=== PATIENT | male | born 1965 | race Caucasian/White ===

== ENCOUNTER 2016-06-06 02:04 | Inpatient (IN) | payer OTHER ==
[~2016-06-06] VITALS: Ht 167.6 cm; Wt 68.9 kg
[~2016-06-06 02:04] MED LIST: ACCUPRIL10 MG PO; ACCUPRIL20 MG PO; ACCUPRIL5 MG PO; ALLEGRA180 MG PO; ASPERDRINK81 MG PO; ASPIR-LOW81 M1 PO; ASPIRIN E.C.81 M1 PO; ASPIRIN E.C.81 M2 PO; BUDEPRION SR150 MG PO; CELEXA40 MG PO; CIALIS10 MG PO; CIPROFLOXACIN500 M1 PO; CRESTOR10 MG PO; DETROL LA4 MG PO; DITROPAN5 MG PO; ELAVIL10 MG PO; FLONASE IH; GEODON40 MG PO; HUMALOG100 UNIT/1 SC; INSULIN PUMP SCCONT; JET ALERT; Klonopin PO; LEVITRA10 MG PO; LIPITOR40 MG PO; Lipitor PO; METOPROLOL SUCC25 MG PO; METOPROLOL SUCC50 MG PO; NEURONTIN300 MG PO; NORCO 5/3251 TABLET PO; OXYBUTYNIN CHLOR5 MG PO; POTASSIUM CHLO10 ME3 PO; PROTONIX40 MG PO; QUINAPRIL HCL5 MG PO; REGLAN10 MG PO; VALTREX1000 MG PO; WELLBUTRIN SR150 MG PO; WELLBUTRIN XL150 MG PO; WELLBUTRIN XL300 MG PO; XANAX; ZOFRAN4 MG PO; [UNRECOGNIZED DRUG - OTHER]
[2016-06-06 02:31] LABS: POINT-OF-CARE METER ID UU13113778
[2016-06-06 02:36] LABS: HEMATOCRIT 44.2 % (38.0-50.0); MCH 31.3 PG (29.0-34.0); MCHC 35.1 G/DL (30.0-36.0); MCV 89.1 FL (86-99); RBC DIS.WIDTH-CV 11.8 % (11.8-14.6); RED BLOOD COUNT 4.96 M/uL (4.00-5.50); WHITE BLOOD COUNT 10.7 K/uL (4.1-10.2)
[2016-06-06 02:50] LABS: CHLORIDE 96 mEq/L (99-109); POTASSIUM 3.8 mEq/L (3.7-5.4); SODIUM 138 mEq/L (136-147)
[2016-06-06 02:51] LABS: GLUCOSE 311 mg/dL (70-99)
[2016-06-06 02:53] LABS: ANION GAP 16 MEQ/L (2-14)
[2016-06-06 02:55] LABS: GFR ESTIMATE (CALCULATED) > 59 mL/min/
[2016-06-06 02:56] LABS: UREA NITROGEN (BUN) 14 mg/dL (9-23)
[2016-06-06 02:57] LABS: TROP-I INTERPRETATION NEGATIVE; TROPONIN-I 0.01 ng/mL (0.0-0.30)
[2016-06-06 02:58] LABS: CREATINE KINASE 98 IU/L (1-294)
[2016-06-06] MEDS ORDERED: ELAVIL10 MG PO (03:09)
[2016-06-06] MEDS ORDERED: XANAX0.25 MG PO (03:09)
[2016-06-06] MEDS ORDERED: VICODIN 5-3001 EACH PO (03:10)
[2016-06-06 03:11] LABS: MEAN PLAT.VOLUME 12.8 uM^3 (9.0-12.4); PLAT.SUFFICIENCY ADEQUATE; PLATELET COUNT 252 K/uL (156-360)
[2016-06-06 03:24] LABS: CARBON DIOXIDE (BICARBONATE) 29.9 MEQ/L (20-31)
[2016-06-06 03:38] LABS: D-DIMER ELISA 0.44 mg/L FEU (< 0.57)
[2016-06-06 07:22] VITALS: BP 162/89
[2016-06-06] MEDS ORDERED: METOPROLOL TART50 MG PO (09:09)
[2016-06-06] MEDS ORDERED: ELAVIL50 MG PO (09:11)
[2016-06-06] MEDS ORDERED: OXYBUTYNIN CHLOR5 M1 PO (09:15)
[2016-06-06] MEDS ORDERED: DAILY VALUE1 EACH PO (09:17)
[2016-06-06 10:08] LABS: TROP-I INTERPRETATION NEGATIVE; TROPONIN-I 0.05 ng/mL (0.0-0.30)
[2016-06-06 16:39] LABS: TROP-I INTERPRETATION NEGATIVE; TROPONIN-I 0.04 ng/mL (0.0-0.30)
[2016-06-06 20:05] VITALS: BP 123/71
[2016-06-06 20:51] LABS: POINT-OF-CARE METER ID UU14174216
[2016-06-07] VITALS (7 sets, daily range): BP systolic 109–148; BP diastolic 52–83
[2016-06-07 01:05] LABS: TROP-I INTERPRETATION NEGATIVE; TROPONIN-I 0.02 ng/mL (0.0-0.30)
[2016-06-07 07:08] LABS: ALKALINE PHOSPHATASE 36 IU/L (3-129); ANION GAP 6 MEQ/L (2-14); CHLORIDE 106 MEQ/L (99-109); GFR ESTIMATE (CALCULATED) > 59 mL/min/; POTASSIUM 4.5 MEQ/L (3.7-5.4); SAMPLE HEMOLYSIS CHECK 0; SAMPLE ICTERIC CHECK 0; SAMPLE LIPEMIA CHECK 0; SODIUM 140 MEQ/L (136-147); TOTAL BILIRUBIN 0.4 MG/DL (0.0-1.0); UREA NITROGEN (BUN) 10 mg/dL (9-23)
[2016-06-07 07:09] LABS: GLUCOSE 112 mg/dL (70-99)
[2016-06-07 11:15] LABS: POINT-OF-CARE METER ID UU13113781
[2016-06-07 15:51] LABS: POINT-OF-CARE METER ID UU13113781
[2016-06-07 21:27] LABS: POINT-OF-CARE METER ID UU14174216; POINT-OF-CARE USER ID ENVMNS
[2016-06-08 04:00] VITALS: BP 137/76
[2016-06-08 07:45] LABS: POINT-OF-CARE METER ID UU13113781; POINT-OF-CARE USER ID ENVKC36
[2016-06-08 08:24] VITALS: BP 163/87
[2016-06-08 11:47] VITALS: BP 159/84
[2016-06-08 12:06] LABS: POINT-OF-CARE METER ID UU13113781; POINT-OF-CARE USER ID ENVKC36
[2016-06-08] MEDS ORDERED: METOCLOPRAMIDE10 MG PO (12:49)
[2016-06-08] MEDS ORDERED: PANTOPRAZOLE SO40 MG PO (12:49)
== END 2016-06-08 15:39 | disposition home or self-care (01) | DRG 392 ==
LOC: EME 02:04 → EDOF 04:40 → 4EAST 07:22
PROVIDERS: Emergency Medicine; Internal Medicine
DX: K21.9 Gastro-esophageal reflux disease without esophagitis (principal); K30 Functional dyspepsia; R07.89 Other chest pain; K31.84 Gastroparesis; E10.649 Type 1 diabetes mellitus with hypoglycemia without coma; F32.9 Major depressive disorder, single episode, unspecified; G89.29 Other chronic pain; I50.9 Heart failure, unspecified; R00.0 Tachycardia, unspecified; E10.43 Type 1 diabetes mellitus with diabetic autonomic (poly)neuropathy; D72.829 Elevated white blood cell count, unspecified; E83.52 Hypercalcemia; E10.65 Type 1 diabetes mellitus with hyperglycemia; R11.2 Nausea with vomiting, unspecified; E78.5 Hyperlipidemia, unspecified; I11.0 Hypertensive heart disease with heart failure; E10.40 Type 1 diabetes mellitus with diabetic neuropathy, unspecified; I25.10 Atherosclerotic heart disease of native coronary artery without angina pectoris; Z87.891 Personal history of nicotine dependence; Z91.013 Allergy to seafood; Z91.09 Other allergy status, other than to drugs and biological substances; Z95.1 Presence of aortocoronary bypass graft; Z86.718 Personal history of other venous thrombosis and embolism; I25.2 Old myocardial infarction; Z96.41 Presence of insulin pump (external) (internal)
CPT/HCPCS: 71020; 80048; 80053; 82010; 82550; 82803; 82948; 84100; 84443; 84484; 85027; 85379; 93005; 99281; 99285; J1650; J1815; J2270; J2405; J3489; J7030; J7050; S0028

== ENCOUNTER 2016-11-29 18:51 | Emergency (ER) | payer OTHER ==
[~2016-11-29] VITALS: Ht 167.6 cm; Wt 68.2 kg
[~2016-11-29 18:51] MED LIST changes: +DAILY VALUE1 EACH PO; +ELAVIL50 MG PO; +METOCLOPRAMIDE10 MG PO; +METOPROLOL TART50 MG PO; +OXYBUTYNIN CHLOR5 M1 PO; +PANTOPRAZOLE SO40 MG PO; +VICODIN 5-3001 EACH PO; +XANAX0.25 MG PO
[2016-11-29 19:10] LABS: POINT-OF-CARE METER ID UU13113778
[2016-11-29 20:01] LABS: MCH 31.1 PG (29.0-34.0); MCHC 34.5 G/DL (30.0-36.0); MCV 90.2 FL (86-99); MEAN PLAT.VOLUME 12.4 uM^3 (9.0-12.4); PLATELET COUNT 306 K/uL (156-360); RBC DIS.WIDTH-CV 11.9 % (11.8-14.6); RBC DIS.WIDTH-SD 39.5 % (39-53); RED BLOOD COUNT 4.88 M/uL (4.00-5.50); WHITE BLOOD COUNT 16.5 K/uL (4.1-10.2)
[2016-11-29 20:10] LABS: ADD MIUA? YES; BILIRUBIN NEGATIVE; BLOOD NEGATIVE; COLOR STRAW ((YELLOW)); GLUCOSE (STRIP) >=500; KETONES NEGATIVE; LEUKOCYTES SMALL; NITRITE NEGATIVE; PROTEIN (STRIP) NEGATIVE; SPECIFIC GRAVITY 1.006 (1.000-1.030); UROBILINOGEN 0.2 MG/DL (0.2-1.0)
[2016-11-29 20:11] LABS: CHLORIDE 97 mEq/L (99-109); SODIUM 134 mEq/L (136-147)
[2016-11-29 20:13] LABS: GLUCOSE 218 mg/dL (70-99)
[2016-11-29 20:14] LABS: ANION GAP 15 MEQ/L (2-14)
[2016-11-29 20:17] LABS: GFR ESTIMATE (CALCULATED) > 59 mL/min/
[2016-11-29 20:18] LABS: UREA NITROGEN (BUN) 13 mg/dL (9-23)
[2016-11-29 20:20] LABS: TROP-I INTERPRETATION NEGATIVE; TROPONIN-I < 0.01 ng/mL (0.0-0.30)
[2016-11-29 20:30] LABS: BACTERIA RARE /HPF; CASTS NONE SEEN /LPF; CRYSTALS NONE SEEN; EPITHELIAL CELLS RARE /HPF; MUCUS RARE /LPF; RED BLOOD CELLS RARE /HPF (0-5)
[2016-11-29 21:58] VITALS: BP 141/85
[2016-11-29 22:10] LABS: SERUM ETHYL ALCOHOL < 10 mg/dL
[2016-11-29 22:14] LABS: COCAINE NEGATIVE (150 ng/mL); PHENCYCLIDINE NEGATIVE (25 ng/mL); THC CANNABINOIDS PRESUMPTIVE POSITIVE (50 ng/mL)
[2016-11-29 22:15] LABS: ADD MEDTOX COMMENT Y; AMPHETAMINE NEGATIVE (500 ng/mL); BARBITURATES NEGATIVE (200 ng/mL); BENZODIAZEPINES NEGATIVE (150 ng/mL); INTERNAL CONTROLS VALID? YES; MEDTOX DRUG SCREEN COMMENT Y; METHADONE NEGATIVE (200 ng/mL); METHAMPHETAMINE NEGATIVE (500 ng/mL); OPIATES (MORPHINE) NEGATIVE (100 ng/mL); OXYCODONE NEGATIVE (100 ng/mL); PROPOXYPHENE NEGATIVE (300 ng/mL); TRICYCLIC ANTIDEPRESSANTS PRESUMPTIVE POSITIVE (300 ng/mL)
== END 2016-11-29 21:59 | disposition left against medical advice (07) ==
LOC: EME 18:51
PROVIDERS: Physician Assistant
PROC: 0HQ1XZZ Repair Face Skin, External Approach (ICD-10-PCS; principal; 2016-11-29)
DX: S40.812A Abrasion of left upper arm, initial encounter (principal); S01.112A Laceration without foreign body of left eyelid and periocular area, initial encounter; S60.512A Abrasion of left hand, initial encounter; S80.211A Abrasion, right knee, initial encounter; S80.212A Abrasion, left knee, initial encounter; W19.XXXA Unspecified fall, initial encounter; R55 Syncope and collapse; R42 Dizziness and giddiness; E11.9 Type 2 diabetes mellitus without complications; Z79.4 Long term (current) use of insulin; Z96.41 Presence of insulin pump (external) (internal); Z79.82 Long term (current) use of aspirin; Z87.891 Personal history of nicotine dependence; Z53.20 Procedure and treatment not carried out because of patient's decision for unspecified reasons
CPT/HCPCS: 71010; 80048; 81003; 82948; 84484; 84999; 85027; 93005; 99281; 99283; G0480

== ENCOUNTER 2017-01-29 12:18 | Emergency (ER) | payer OTHER ==
[~2017-01-29] VITALS: Ht 167.6 cm; Wt 73.4 kg
[~2017-01-29 12:18] MED LIST changes: +METOPROLOL TART25 MG PO; -METOPROLOL TART50 MG PO
[2017-01-29 15:25] LABS: HEMATOCRIT 47.4 % (38.0-50.0); MCH 30.6 PG (29.0-34.0); MCV 89.9 FL (86-99); RBC DIS.WIDTH-SD 39.6 % (39-53); RED BLOOD COUNT 5.27 M/uL (4.00-5.50); WHITE BLOOD COUNT 15.5 K/uL (4.1-10.2)
[2017-01-29 15:38] LABS: CHLORIDE 94 mEq/L (99-109); POTASSIUM 5.9 mEq/L (3.7-5.4); SODIUM 129 mEq/L (136-147)
[2017-01-29 15:41] LABS: ANION GAP 13 MEQ/L (2-14)
[2017-01-29 15:43] LABS: ALKALINE PHOSPHATASE 69 IU/L (3-129)
[2017-01-29 15:44] LABS: GFR ESTIMATE (CALCULATED) > 59 mL/min/ (58.99-99999)
[2017-01-29 15:45] LABS: TROP-I INTERPRETATION NEGATIVE; TROPONIN-I < 0.01 ng/mL (0.0-0.30); UREA NITROGEN (BUN) 17 mg/dL (9-23)
[2017-01-29 15:49] LABS: GLUCOSE 447 mg/dL (70-99)
[2017-01-29 15:54] LABS: TOTAL BILIRUBIN 0.7 mg/dL (0.0-1.0)
[2017-01-29 16:16] LABS: MEAN PLAT.VOLUME 12.6 uM^3 (9.0-12.4); PLAT.SUFFICIENCY ADEQUATE; PLATELET COUNT 258 K/uL (156-360)
[2017-01-29 18:00] LABS: ADD MIUA? NO; BILIRUBIN NEGATIVE; BLOOD NEGATIVE; COLOR STRAW ((YELLOW)); GLUCOSE (STRIP) >=500; KETONES 20; LEUKOCYTES NEGATIVE; NITRITE NEGATIVE; PROTEIN (STRIP) NEGATIVE; SPECIFIC GRAVITY 1.014 (1.000-1.030); UCUL ADDED? NO; UROBILINOGEN 0.2 MG/DL (0.2-1.0)
[2017-01-29 18:02] LABS: POINT-OF-CARE METER ID UU13113800
[2017-01-29 18:12] LABS: AMPHETAMINE NEGATIVE (500 ng/mL); BARBITURATES NEGATIVE (200 ng/mL); BENZODIAZEPINES NEGATIVE (150 ng/mL); COCAINE NEGATIVE (150 ng/mL); INTERNAL CONTROLS VALID? YES; METHADONE NEGATIVE (200 ng/mL); METHAMPHETAMINE NEGATIVE (500 ng/mL); OPIATES (MORPHINE) NEGATIVE (100 ng/mL); OXYCODONE NEGATIVE (100 ng/mL); PHENCYCLIDINE NEGATIVE (25 ng/mL); PROPOXYPHENE NEGATIVE (300 ng/mL); THC CANNABINOIDS PRESUMPTIVE POSITIVE (50 ng/mL); TRICYCLIC ANTIDEPRESSANTS PRESUMPTIVE POSITIVE (300 ng/mL)
[2017-01-29 18:13] LABS: ADD MEDTOX COMMENT Y
[2017-01-29 18:54] LABS: TROP-I INTERPRETATION NEGATIVE; TROPONIN-I < 0.01 ng/mL (0.0-0.30)
[2017-01-29] MEDS ORDERED: ULTRAM50 MG PO (19:17)
[2017-01-29 20:01] LABS: POINT-OF-CARE METER ID UU13113800
[2017-01-29 20:14] VITALS: BP 107/48
[2017-02-02 10:38] LABS: POINT-OF-CARE METER ID UU13113800
== END 2017-01-29 20:22 | disposition home or self-care (01) ==
LOC: EME 12:18
PROVIDERS: Nurse Practitioner Family
DX: R55 Syncope and collapse (principal); R07.81 Pleurodynia; E11.65 Type 2 diabetes mellitus with hyperglycemia; E11.40 Type 2 diabetes mellitus with diabetic neuropathy, unspecified; K31.84 Gastroparesis; I11.0 Hypertensive heart disease with heart failure; I50.9 Heart failure, unspecified; K21.9 Gastro-esophageal reflux disease without esophagitis; J45.909 Unspecified asthma, uncomplicated; I25.2 Old myocardial infarction; F41.9 Anxiety disorder, unspecified; F32.9 Major depressive disorder, single episode, unspecified; F31.9 Bipolar disorder, unspecified; Z95.1 Presence of aortocoronary bypass graft; Z87.891 Personal history of nicotine dependence; Z96.41 Presence of insulin pump (external) (internal); Z79.82 Long term (current) use of aspirin; Z91.041 Radiographic dye allergy status
CPT/HCPCS: 70450; 71101; 80053; 81003; 82948; 84484; 84999; 85027; 93005; 99281; 99285; J1815; J1885; J2405; J7030

== ENCOUNTER 2017-02-05 13:36 | Inpatient (IN) | payer OTHER ==
[~2017-02-05] VITALS: Ht 167.6 cm; Wt 72.7 kg
[~2017-02-05 13:36] MED LIST changes: +ULTRAM50 MG PO
[2017-02-05 14:26] LABS: HEMATOCRIT 49.7 % (38.0-50.0); MCH 31.1 PG (29.0-34.0); MCHC 34.2 G/DL (30.0-36.0); MCV 90.9 FL (86-99); RBC DIS.WIDTH-SD 39.8 % (39-53); RED BLOOD COUNT 5.47 M/uL (4.00-5.50); WHITE BLOOD COUNT 17.2 K/uL (4.1-10.2)
[2017-02-05 14:43] LABS: CHLORIDE 95 mEq/L (99-109); POTASSIUM 4.7 mEq/L (3.7-5.4); SODIUM 134 mEq/L (136-147)
[2017-02-05 14:48] LABS: GLUCOSE 223 mg/dL (70-99)
[2017-02-05 14:49] LABS: GFR ESTIMATE (CALCULATED) 52 mL/min/ (58.99-99999); UREA NITROGEN (BUN) 14 mg/dL (9-23)
[2017-02-05 14:52] LABS: CREATININE 1.5 mg/dL (0.6-1.3); TROP-I INTERPRETATION NEGATIVE; TROPONIN-I < 0.01 ng/mL (0.0-0.30)
[2017-02-05 15:35] LABS: PLATELET CLUMPS PRESENT - PLATELET COUNT APPEARS ADQ.
[2017-02-05 15:36] LABS: PLATELET COUNT UNABLE TO REPORT K/uL (156-360)
[2017-02-05] MEDS ORDERED: METOCLOPRAMIDE10 MG PO (19:27)
[2017-02-05] MEDS ORDERED: PROTONIX40 MG PO (19:27)
[2017-02-06 03:34] VITALS: BP 185/57
[2017-02-06 06:53] LABS: ALBUMIN 3.7 G/DL (3.2-4.8); ALKALINE PHOSPHATASE 60 IU/L (3-129); ALT (GPT) 15 IU/L (3-49); AST (GOT) 20 IU/L (2-34); CHLORIDE 91 MEQ/L (99-109); CREATININE 1.1 MG/DL (0.6-1.3); GFR ESTIMATE (CALCULATED) > 59 mL/min/ (58.99-99999); GLUCOSE 304 mg/dL (70-99); POTASSIUM 4.5 MEQ/L (3.7-5.4); SODIUM 130 MEQ/L (136-147); TOTAL PROTEIN 5.7 G/DL (6.4-8.3)
[2017-02-06 07:00] LABS: TOTAL BILIRUBIN 0.8 MG/DL (0.0-1.0); UREA NITROGEN (BUN) 26 mg/dL (9-23)
[2017-02-06 07:18] LABS: HEMATOCRIT 40.4 % (38.0-50.0); MCH 30.4 PG (29.0-34.0); MCHC 33.4 G/DL (30.0-36.0); PLATELET COUNT 221 K/uL (156-360); RBC DIS.WIDTH-CV 12.1 % (11.8-14.6); RBC DIS.WIDTH-SD 40.2 % (39-53); RED BLOOD COUNT 4.44 M/uL (4.00-5.50); WHITE BLOOD COUNT 18.9 K/uL (4.1-10.2)
[2017-02-06 07:36] LABS: HEMOGLOBIN 13.5 G/DL (12.5-16.6)
[2017-02-06 07:51] VITALS: BP 172/81
[2017-02-06 10:17] LABS: AMYLASE 30 IU/L (1-118)
[2017-02-06 18:25] VITALS: BP 158/82
[2017-02-06 19:19] VITALS: BP 160/83
[2017-02-07 03:48] VITALS: BP 134/62
[2017-02-07 06:31] LABS: HEMATOCRIT 32.3 % (38.0-50.0); MCH 29.8 PG (29.0-34.0); MCHC 33.4 G/DL (30.0-36.0); MCV 89.2 FL (86-99); PLATELET COUNT 187 K/uL (156-360); RBC DIS.WIDTH-CV 12.5 % (11.8-14.6); RBC DIS.WIDTH-SD 40.9 % (39-53); RED BLOOD COUNT 3.62 M/uL (4.00-5.50); WHITE BLOOD COUNT 14.1 K/uL (4.1-10.2)
[2017-02-07 06:38] LABS: HEMOGLOBIN 10.8 G/DL (12.5-16.6)
[2017-02-07 06:41] LABS: ALBUMIN 2.9 G/DL (3.2-4.8); ALKALINE PHOSPHATASE 60 IU/L (3-129); ALT (GPT) 11 IU/L (3-49); AST (GOT) 16 IU/L (2-34); CHLORIDE 100 MEQ/L (99-109); CREATININE 0.7 MG/DL (0.6-1.3); GFR ESTIMATE (CALCULATED) > 59 mL/min/ (58.99-99999); GLUCOSE 202 mg/dL (70-99); POTASSIUM 4.3 MEQ/L (3.7-5.4); SODIUM 132 MEQ/L (136-147); UREA NITROGEN (BUN) 12 mg/dL (9-23)
[2017-02-07 06:42] LABS: TOTAL BILIRUBIN 0.6 MG/DL (0.0-1.0); TOTAL PROTEIN 4.7 G/DL (6.4-8.3)
[2017-02-07 07:35] VITALS: BP 143/70
[2017-02-07 11:12] VITALS: BP 139/70
[2017-02-07 16:24] VITALS: BP 134/79
[2017-02-07 20:57] VITALS: BP 152/72
[2017-02-07 23:00] VITALS: BP 161/78
[2017-02-08 01:27] LABS: C DIFF TOXIN NEGATIVE (NEGATIVE)
[2017-02-08 06:16] VITALS: BP 150/68
[2017-02-08 07:43] VITALS: BP 158/80
[2017-02-08 17:02] VITALS: BP 144/80
[2017-02-08 23:34] VITALS: BP 158/89
[2017-02-09 05:49] LABS: BASOPHIL (%) 0.4 % (0-1); BASOPHIL COUNT 0.1 K/uL (0-0.1); EOSINOPHIL (%) 0.4 % (0-5); EOSINOPHIL COUNT 0.1 K/uL (0-0.3); HEMATOCRIT 34.8 % (38.0-50.0); HEMOGLOBIN 11.6 G/DL (12.5-16.6); IMMATURE GRANULOCYTE (%) 0.9 % (0.0-0.7); LYMPHOCYTE (%) 6.3 % (15-42); LYMPHOCYTE COUNT 0.9 K/uL (1.0-2.8); MCH 29.5 PG (29.0-34.0); MCHC 33.3 G/DL (30.0-36.0); MCV 88.5 FL (86-99); MONOCYTE (%) 9.5 % (3-12); MONOCYTE COUNT 1.3 K/uL (0-0.8); NEUTROPHIL (%) 82.5 % (45-76); NEUTROPHIL COUNT 11.5 K/uL (1.8-6.4); PLATELET COUNT 180 K/uL (156-360); RBC DIS.WIDTH-CV 12.1 % (11.8-14.6); RBC DIS.WIDTH-SD 39.7 % (39-53); RED BLOOD COUNT 3.93 M/uL (4.00-5.50); WHITE BLOOD COUNT 13.9 K/uL (4.1-10.2)
[2017-02-09 06:30] LABS: IRON 27 MCG/DL (35-150); TRANSFERRIN (TIBC) 187.8 mg/dL (215-380); TRANSFERRIN SATUR. 14 % (20-55)
[2017-02-09 07:47] VITALS: BP 179/98
[2017-02-09 08:40] LABS: FERRITIN 130 NG/ML (22-322)
[2017-02-09 10:54] VITALS: BP 170/94
[2017-02-09 12:48] VITALS: BP 152/74
[2017-02-09 15:59] VITALS: BP 163/78
[2017-02-10 01:00] VITALS: BP 186/101
[2017-02-10 06:43] LABS: BASOPHIL (%) 0.5 % (0-1); BASOPHIL COUNT 0.1 K/uL (0-0.1); EOSINOPHIL (%) 0.7 % (0-5); EOSINOPHIL COUNT 0.1 K/uL (0-0.3); HEMATOCRIT 35.3 % (38.0-50.0); HEMOGLOBIN 12.2 G/DL (12.5-16.6); IMMATURE GRANULOCYTE (%) 1.5 % (0.0-0.7); LYMPHOCYTE (%) 6.6 % (15-42); LYMPHOCYTE COUNT 0.9 K/uL (1.0-2.8); MCH 30.5 PG (29.0-34.0); MCHC 34.6 G/DL (30.0-36.0); MCV 88.3 FL (86-99); MONOCYTE (%) 10.6 % (3-12); MONOCYTE COUNT 1.4 K/uL (0-0.8); NEUTROPHIL (%) 80.1 % (45-76); NEUTROPHIL COUNT 10.8 K/uL (1.8-6.4); PLATELET COUNT 202 K/uL (156-360); RBC DIS.WIDTH-CV 12.1 % (11.8-14.6); RBC DIS.WIDTH-SD 39.2 % (39-53); WHITE BLOOD COUNT 13.4 K/uL (4.1-10.2)
[2017-02-10 06:55] VITALS: BP 155/77
[2017-02-10 07:12] LABS: CHLORIDE 97 MEQ/L (99-109); CREATININE 0.6 MG/DL (0.6-1.3); GFR ESTIMATE (CALCULATED) > 59 mL/min/ (58.99-99999); GLUCOSE 239 mg/dL (70-99); POTASSIUM 3.5 MEQ/L (3.7-5.4); SODIUM 133 MEQ/L (136-147); UREA NITROGEN (BUN) 3 mg/dL (9-23)
[2017-02-10 11:36] VITALS: BP 152/85
[2017-02-10 23:18] VITALS: BP 120/60
[2017-02-11 04:24] VITALS: BP 144/67
[2017-02-11 06:59] LABS: CHLORIDE 102 MEQ/L (99-109); CREATININE 0.7 MG/DL (0.6-1.3); GFR ESTIMATE (CALCULATED) > 59 mL/min/ (58.99-99999); GLUCOSE 253 mg/dL (70-99); SODIUM 133 MEQ/L (136-147); UREA NITROGEN (BUN) 2 mg/dL (9-23)
[2017-02-11 07:00] LABS: POTASSIUM 4.3 MEQ/L (3.7-5.4)
[2017-02-11 08:13] VITALS: BP 144/67; BP 144/68
[2017-02-11 12:00] VITALS: BP 142/78
[2017-02-11 16:00] VITALS: BP 136/63
[2017-02-11 20:00] VITALS: BP 150/85
[2017-02-12] VITALS: BP 138/78
[2017-02-12 04:20] VITALS: BP 155/85
[2017-02-12 07:49] VITALS: BP 133/60
[2017-02-12] MEDS ORDERED: METRONIDAZOLE500 MG PO (09:47)
[2017-02-12] MEDS ORDERED: LEVOFLOXACIN750 MG PO (09:47)
[2017-02-12] MEDS ORDERED: DELZICOL400 M1 PO (09:47)
[2017-02-12 12:00] VITALS: BP 132/62
[2017-02-12] MEDS ORDERED: APRISO0.375 GM PO ×2 (12:46→12:48)
== END 2017-02-12 13:20 | disposition home or self-care (01) | DRG 385 ==
LOC: EME 13:36 → 5EAST 19:50 → EDOF 19:50 → ENRESERV 20:15 → 5EAST 21:37 → ENPENDDIS 02-12 → 5EAST 02-12 13:20
PROVIDERS: Emergency Medicine; Internal Medicine; Nurse Practitioner Family; Specialist
PROC: 0DBB8ZX Excision of Ileum, Via Natural or Artificial Opening Endoscopic, Diagnostic (ICD-10-PCS; principal; 2017-02-10)
PROC: 0DB68ZX Excision of Stomach, Via Natural or Artificial Opening Endoscopic, Diagnostic (ICD-10-PCS; principal; 2017-02-10)
PROC: 0DBG8ZX Excision of Left Large Intestine, Via Natural or Artificial Opening Endoscopic, Diagnostic (ICD-10-PCS; principal; 2017-02-10)
PROC: 0DBF8ZX Excision of Right Large Intestine, Via Natural or Artificial Opening Endoscopic, Diagnostic (ICD-10-PCS; principal; 2017-02-10)
PROC: 0DBP8ZX Excision of Rectum, Via Natural or Artificial Opening Endoscopic, Diagnostic (ICD-10-PCS; principal; 2017-02-10)
DX: K51.50 Left sided colitis without complications (principal); K55.039 Acute (reversible) ischemia of large intestine, extent unspecified; K58.0 Irritable bowel syndrome with diarrhea; F33.9 Major depressive disorder, recurrent, unspecified; K22.10 Ulcer of esophagus without bleeding; K21.0 Gastro-esophageal reflux disease with esophagitis; E10.40 Type 1 diabetes mellitus with diabetic neuropathy, unspecified; E10.65 Type 1 diabetes mellitus with hyperglycemia; M19.90 Unspecified osteoarthritis, unspecified site; E10.43 Type 1 diabetes mellitus with diabetic autonomic (poly)neuropathy; K31.84 Gastroparesis; K64.8 Other hemorrhoids; K44.9 Diaphragmatic hernia without obstruction or gangrene; I25.10 Atherosclerotic heart disease of native coronary artery without angina pectoris; F12.10 Cannabis abuse, uncomplicated; I95.9 Hypotension, unspecified; F41.9 Anxiety disorder, unspecified; E78.5 Hyperlipidemia, unspecified; E10.21 Type 1 diabetes mellitus with diabetic nephropathy; G43.909 Migraine, unspecified, not intractable, without status migrainosus; I11.9 Hypertensive heart disease without heart failure; K29.60 Other gastritis without bleeding; K25.9 Gastric ulcer, unspecified as acute or chronic, without hemorrhage or perforation; Z91.041 Radiographic dye allergy status; Z91.013 Allergy to seafood; Z95.1 Presence of aortocoronary bypass graft; Z90.49 Acquired absence of other specified parts of digestive tract; Z86.718 Personal history of other venous thrombosis and embolism; Z86.010 Personal history of colon polyps; Z83.71 Family history of colonic polyps; Z98.61 Coronary angioplasty status; Z79.4 Long term (current) use of insulin; I25.2 Old myocardial infarction; Z87.891 Personal history of nicotine dependence; Z96.41 Presence of insulin pump (external) (internal); Z83.3 Family history of diabetes mellitus; Z80.0 Family history of malignant neoplasm of digestive organs; Z82.49 Family history of ischemic heart disease and other diseases of the circulatory system
CPT/HCPCS: 36415; 71020; 74176; 80048; 80053; 82150; 82728; 82947; 82948; 83540; 84153 GA; 84466; 84484; 84681 90; 85025; 85027; 87177; 87329; 87493; 87506; 88305; 88312; 88342 TC; 93005; 93880; 95819; 99281; 99285; C9113; J1630; J1650; J1815; J1956; J2060; J2270; J2405; J3480; J7030; S0030

== ENCOUNTER 2017-05-25 23:04 | Emergency (ER) | payer OTHER ==
[~2017-05-25] VITALS: Ht 167.6 cm; Wt 72.9 kg
[~2017-05-25 23:04] MED LIST changes: +APRISO0.375 GM PO; +DELZICOL400 M1 PO; +LEVOFLOXACIN750 MG PO; +METRONIDAZOLE500 MG PO
[2017-05-25 23:56] LABS: HEMATOCRIT 37.8 % (38.0-50.0); HEMOGLOBIN 12.6 G/DL (12.5-16.6); MCH 28.3 PG (29.0-34.0); MCHC 33.3 G/DL (30.0-36.0); MCV 84.8 FL (86-99); RBC DIS.WIDTH-SD 43.7 % (39-53); RED BLOOD COUNT 4.46 M/uL (4.00-5.50); WHITE BLOOD COUNT 13.1 K/uL (4.1-10.2)
[2017-05-26 00:05] LABS: CHLORIDE 98 mEq/L (99-109); POTASSIUM 4.1 mEq/L (3.7-5.4); SODIUM 132 mEq/L (136-147)
[2017-05-26 00:07] LABS: GLUCOSE 385 mg/dL (70-99)
[2017-05-26 00:11] LABS: GFR ESTIMATE (CALCULATED) > 59 mL/min/ (58.99-99999)
[2017-05-26 00:12] LABS: UREA NITROGEN (BUN) 7 mg/dL (9-23)
[2017-05-26 00:56] LABS: PLAT.SUFFICIENCY ADEQUATE; PLATELET COUNT 215 K/uL (156-360)
[2017-05-26 02:12] VITALS: BP 126/79
== END 2017-05-26 02:12 | disposition home or self-care (01) ==
LOC: EME → EDBD 23:04 → EME 05-26 02:12
PROVIDERS: Emergency Medicine
DX: E11.649 Type 2 diabetes mellitus with hypoglycemia without coma (principal); Z96.41 Presence of insulin pump (external) (internal); E11.40 Type 2 diabetes mellitus with diabetic neuropathy, unspecified; K31.84 Gastroparesis; I10 Essential (primary) hypertension; I25.2 Old myocardial infarction; F31.9 Bipolar disorder, unspecified; F32.9 Major depressive disorder, single episode, unspecified; F41.9 Anxiety disorder, unspecified; Z87.891 Personal history of nicotine dependence; Z95.1 Presence of aortocoronary bypass graft; Z79.4 Long term (current) use of insulin; Z79.82 Long term (current) use of aspirin; Z91.041 Radiographic dye allergy status
CPT/HCPCS: 80048; 81003; 82948; 85027; 99281; 99285

== ENCOUNTER 2017-06-13 15:04 | Emergency (ER) | payer OTHER ==
[~2017-06-13] VITALS: Ht 167.6 cm; Wt 76.0 kg
[2017-06-13 15:26] LABS: HEMATOCRIT 42.5 % (38.0-50.0); HEMOGLOBIN 13.7 G/DL (12.5-16.6); MCH 28.1 PG (29.0-34.0); MCHC 32.2 G/DL (30.0-36.0); MCV 87.3 FL (86-99); PLATELET COUNT 240 K/uL (156-360); RBC DIS.WIDTH-CV 14.4 % (11.8-14.6); RBC DIS.WIDTH-SD 46.1 % (39-53); RED BLOOD COUNT 4.87 M/uL (4.00-5.50); WHITE BLOOD COUNT 9.4 K/uL (4.1-10.2)
[2017-06-13 15:33] LABS: CHLORIDE 101 mEq/L (99-109); POTASSIUM 4.2 mEq/L (3.7-5.4); SODIUM 139 mEq/L (136-147)
[2017-06-13 15:39] LABS: GFR ESTIMATE (CALCULATED) > 59 mL/min/ (58.99-99999)
[2017-06-13 15:40] LABS: UREA NITROGEN (BUN) 9 mg/dL (9-23)
[2017-06-13 15:43] LABS: GLUCOSE 43 mg/dL (70-99)
[2017-06-13 16:10] LABS: TROP-I INTERPRETATION NEGATIVE; TROPONIN-I < 0.01 ng/mL (0.0-0.30)
[2017-06-13 17:15] VITALS: BP 186/103
== END 2017-06-13 17:27 | disposition home or self-care (01) ==
LOC: EME 15:04
PROVIDERS: Family Medicine
DX: E11.649 Type 2 diabetes mellitus with hypoglycemia without coma (principal); E11.40 Type 2 diabetes mellitus with diabetic neuropathy, unspecified; Z96.41 Presence of insulin pump (external) (internal); Z79.4 Long term (current) use of insulin; I25.2 Old myocardial infarction; I50.9 Heart failure, unspecified; I11.0 Hypertensive heart disease with heart failure; F41.9 Anxiety disorder, unspecified; F32.9 Major depressive disorder, single episode, unspecified; R56.9 Unspecified convulsions; Z95.1 Presence of aortocoronary bypass graft; Z79.82 Long term (current) use of aspirin; Z87.891 Personal history of nicotine dependence; Z88.8 Allergy status to other drugs, medicaments and biological substances; Z91.041 Radiographic dye allergy status
CPT/HCPCS: 80048; 82948; 84484; 85027; 93005; 99281; 99284

== ENCOUNTER 2017-10-05 17:54 | Emergency (ER) | payer OTHER ==
[~2017-10-05] VITALS: Ht 167.6 cm; Wt 68.0 kg
[2017-10-05 18:39] LABS: BASOPHIL (%) 0.3 % (0-1); BASOPHIL COUNT 0.1 K/uL (0-0.1); EOSINOPHIL (%) 0.6 % (0-5); EOSINOPHIL COUNT 0.1 K/uL (0-0.3); HEMATOCRIT 46.3 % (38.0-50.0); HEMOGLOBIN 15.3 G/DL (12.5-16.6); IMMATURE GRANULOCYTE (%) 0.7 % (0.0-0.7); LYMPHOCYTE (%) 5.8 % (15-42); LYMPHOCYTE COUNT 1.1 K/uL (1.0-2.8); MCH 29.5 PG (29.0-34.0); MCV 89.2 FL (86-99); MONOCYTE (%) 5.1 % (3-12); MONOCYTE COUNT 0.9 K/uL (0-0.8); NEUTROPHIL (%) 87.5 % (45-76); NEUTROPHIL COUNT 16.1 K/uL (1.8-6.4); PLATELET COUNT 249 K/uL (156-360); RBC DIS.WIDTH-SD 45.5 % (39-53); RED BLOOD COUNT 5.19 M/uL (4.00-5.50); WHITE BLOOD COUNT 18.3 K/uL (4.1-10.2)
[2017-10-05 18:49] LABS: CHLORIDE 98 mEq/L (99-109); POTASSIUM 4.4 mEq/L (3.7-5.4); SODIUM 136 mEq/L (136-147)
[2017-10-05 18:50] LABS: GLUCOSE 210 mg/dL (70-99)
[2017-10-05 18:54] LABS: CREATININE 1.4 mg/dL (0.6-1.3); GFR ESTIMATE (CALCULATED) 56 mL/min/ (58.99-99999)
[2017-10-05 18:55] LABS: UREA NITROGEN (BUN) 12 mg/dL (9-23)
[2017-10-05 19:01] LABS: TROP-I INTERPRETATION NEGATIVE; TROPONIN-I < 0.01 ng/mL (0.0-0.30)
[2017-10-05] MEDS ORDERED: KEFLEX500 MG PO (20:50)
[2017-10-05] MEDS ORDERED: FLEXERIL10 MG PO (20:53)
[2017-10-05] MEDS ORDERED: ULTRAM50 MG PO (20:53)
[2017-10-05 21:07] VITALS: BP 148/88
== END 2017-10-05 21:08 | disposition home or self-care (01) ==
LOC: EME 17:54
PROVIDERS: Physician Assistant
PROC: 0JQ10ZZ Repair Face Subcutaneous Tissue and Fascia, Open Approach (ICD-10-PCS; principal; 2017-10-05)
DX: S01.81XA Laceration without foreign body of other part of head, initial encounter (principal); S01.511A Laceration without foreign body of lip, initial encounter; W10.9XXA Fall (on) (from) unspecified stairs and steps, initial encounter; E11.649 Type 2 diabetes mellitus with hypoglycemia without coma; E11.40 Type 2 diabetes mellitus with diabetic neuropathy, unspecified; Z96.41 Presence of insulin pump (external) (internal); I10 Essential (primary) hypertension; I50.9 Heart failure, unspecified; R56.9 Unspecified convulsions; G43.909 Migraine, unspecified, not intractable, without status migrainosus; F32.9 Major depressive disorder, single episode, unspecified; F41.9 Anxiety disorder, unspecified; F31.9 Bipolar disorder, unspecified; I25.2 Old myocardial infarction; Z95.1 Presence of aortocoronary bypass graft; Z79.82 Long term (current) use of aspirin; Z87.891 Personal history of nicotine dependence; Z88.8 Allergy status to other drugs, medicaments and biological substances; Z91.041 Radiographic dye allergy status; Z91.013 Allergy to seafood
CPT/HCPCS: 70450; 70486; 71046; 72125; 80048; 84484; 85025; 93005; 99281; 99285